=== PATIENT | male | born 1960 | race African-American/Black ===

== ENCOUNTER 2016-07-18 12:32 | Emergency (ER) | payer MEDICAID ==
[2016-07-18] MEDS ORDERED: ONDANSETRON ODT 4 MG TABLET TL STA (14:59)
[2016-07-18] MEDS ORDERED: ONDANSETRON ODT 4 MG TABLET ONE (15:16)
== END 2016-07-18 17:16 | disposition home or self-care (01) ==
DX: B34.9 Viral infection, unspecified (principal); R41.0 Disorientation, unspecified; I10 Essential (primary) hypertension; E10.9 Type 1 diabetes mellitus without complications; Z79.4 Long term (current) use of insulin; Z86.73 Personal history of transient ischemic attack (TIA), and cerebral infarction without residual deficits; Z79.82 Long term (current) use of aspirin
CPT/HCPCS: 36415; 70450; 80053; 82009; 83690; 83735; 85025; 99283; 99284; Q0162